=== PATIENT | female | born 1965 | race Caucasian/White ===

== ENCOUNTER 2017-07-28 18:56 | Emergency (ER) | payer OTHER ==
[2017-07-28 19:31] VITALS: TEMP 98; BMI 31.4
[2017-07-28] MEDS ORDERED: RANITIDINE HCL 150 MG TABLET (FP) PO ONE (19:31)
--- NOTE | 2017-07-28 19:33 | PDOC ---
Rapid Medical Evaluation Chief Complaint: Pain Time Seen by Provider: 07/28/17 19:26 Medical Evaluation: 07/28/17 19:27 The patient presents with a chief complaint of: Abdominal pain. Epigastric pain which she rates a 7/10. Took Zantac with some relief. I have performed a brief in-person evaluation of this patient; Pertinent physical exam findings: ambulatory, in no respiratory distress. Soft non-tender abdomen. CTAB I have ordered the following: CBC, CMP, Pt/INR, Lipase, EKG, CXR, UA The patient will proceed to the ED for further evaluation.
[2017-07-28 20:00] LABS: BASO % 0.4 % (0-2.0); EOS % 1.8 % (0-4.5); HEMATOCRIT 40.8 % (32.4-45.2); HEMOGLOBIN 13.4 GM/dL (10.7-15.3); LYMPH % 23.4 % (8-40); MCH 28.8 pg (25.7-33.7); MCHC 32.9 g/dl (32.0-36.0); MEAN CELL VOLUME 87.3 fl (80-96); MEAN PLT VOLUME 8.8 fl (7.5-11.1); MONO % 7.5 % (3.8-10.2); NEUT % 66.9 % (42.8-82.8); PLATELET COUNT 227 K/MM3 (134-434); RBC 4.67 M/mm3 (3.60-5.2); RDW 14.2 % (11.6-15.6); WHITE BLOOD COUNT 9.3 K/mm3 (4.0-10.0)
[2017-07-28 20:02] LABS: URINE APPEARANCE CLEAR; URINE BILIRUBIN NEGATIVE (NEGATIVE); URINE BLOOD 2+ (NEGATIVE); URINE COLOR LTYELLOW; URINE GLUCOSE (UA) NEGATIVE (NEGATIVE); URINE KETONE NEGATIVE (NEGATIVE); URINE LEUK ESTERASE NEGATIVE (NEGATIVE); URINE NITRITE NEGATIVE (NEGATIVE); URINE PROTEIN NEGATIVE (NEGATIVE); URINE UROBILINOGEN NEGATIVE mg/dL (0.2-1.0)
[2017-07-28 20:10] LABS: EPI CELLS RARE /HPF (FEW); URINE MUCUS RARE
[2017-07-28 20:25] LABS: INR 0.94 (0.82-1.09); PROTHROMBIN TIME (PATIENT) 10.6 SEC (9.98-11.88)
[2017-07-28 20:43] LABS: ALBUMIN 3.8 g/dl (3.4-5.0); ANION GAP 9 (8-16); BLOOD UREA NITROGEN 15 mg/dL (7-18); CALCIUM 8.6 mg/dL (8.5-10.1); CHLORIDE 103 mmol/L (98-107); CO2 27 mmol/L (21-32); CREATININE 0.6 mg/dL (0.55-1.02); GLUCOSE,RANDOM 120 mg/dL (74-106); POTASSIUM 3.7 mmol/L (3.5-5.1); SGOT/AST 16 U/L (15-37); SGPT/ALT 31 U/L (12-78); SODIUM 139 mmol/L (136-145)
[2017-07-28 20:44] LABS: ALK PHOS 81 U/L (45-117); BILIRUBIN,TOTAL 0.4 mg/dL (0.2-1.0)
--- NOTE | 2017-07-28 20:48 | PDOC ---
History of Present Illness - General Chief Complaint: Pain Stated Complaint: STOMACH PAIN Time Seen by Provider: 07/28/17 19:26 - History of Present Illness Initial Comments: 07/28/17 20:47 52 y.o. female with no PMH presents to the ED c/o 4 day h/o chest pain that starts at her subxiphoid area and radiates around to her back B/L. Patient states the pain is exacerbated by movement of her arms and she denies any associated dyspnea, palpitations, lightheadedness. Patient notes the pain came on suddenly and she cannot recall exactly what she was doing at the time it started. Of note patient also had an isolated episode of substernal chest pain 4 days previous which was relieved by ASA. Patient denies any recent trauma or over-exertion and notes she has never had a cardiac work-up. Family history is negative for any heart disease. Patient was Influenza positive in May 2017. Past History - Past Medical History Allergies/Adverse Reactions: Allergies Allergy/AdvReac Type Severity Reaction Status Date / Time No Known Allergies Allergy Verified 07/28/17 19:31 - Suicide/Smoking/Psychosocial Hx Smoking History: Current every day smoker Number of Cigarettes Smoked Daily: 10 Information on smoking cessation initiated: No Review of Systems - Review of Systems Constitutional: No: Chills, Fever Respiratory: No: Shortness of Breath Cardiac (ROS): Yes: Chest Tightness. No: Lightheadedness, Palpitations, Syncope ABD/GI: No: Constipated, Diarrhea, Nausea, Vomiting : No: Burning, Dysuria *Physical Exam - Vital Signs Last Vital Signs Temp Pulse Resp BP Pulse Ox 98 F 73 16 100/60 99 07/28/17 19:26 07/28/17 19:26 07/28/17 19:26 07/28/17 19:26 07/28/17 19:26 - Physical Exam Comments: 07/28/17 22:36 GENERAL: Awake, alert, and fully oriented, in no acute distress HEAD: No signs of trauma EYES: PERRLA, EOMI, sclera anicteric, conjunctiva clear ENT: Auricles normal inspection, hearing grossly normal, nares patent, oropharynx clear without exudates. Moist mucosa NECK: Normal ROM, supple, no lymphadenopathy, JVD, or masses LUNGS: Breath sounds equal, clear to auscultation bilaterally. No wheezes, and no crackles HEART: Regular rate and rhythm, normal S1 and S2, no murmurs, rubs or gallops, ( +) reproducible chest pain ABDOMEN: Soft, nontender, normoactive bowel sounds. No guarding, no rebound. No masses EXTREMITIES: Normal range of motion, no edema. No clubbing or cyanosis. No cords , erythema, or tenderness BACK: No midline spinal tenderness in cervical/thoracic/lumbar region NEUROLOGICAL: Normal speech, cranial nerves intact, A&O x3 SKIN: Warm, Dry, normal turgor, no rashes or lesions noted. ED Treatment Course - LABORATORY CBC & Chemistry Diagram: 07/28/17 19:43 07/28/17 19:43 - ADDITIONAL ORDERS Additional order review: Laboratory Results 07/28/17 07/28/17 07/28/17 19:43 19:43 19:43 PT with INR INR Sodium 139 Potassium 3.7 Chloride 103 Carbon Dioxide 27 Anion Gap 9 BUN 15 Creatinine 0.6 Creat Clearance w eGFR > 60 Random Glucose 120 H Calcium 8.6 Total Bilirubin 0.4 AST 16 ALT 31 Alkaline Phosphatase 81 Total Protein 7.0 Albumin 3.8 Lipase 251 Urine Color Ltyellow Urine Appearance Clear Urine pH 5.0 Ur Specific [place] 1.018 Urine Protein Negative Urine Glucose (UA) Negative Urine Ketones Negative Urine Blood 2+ H Urine Nitrite Negative Urine Bilirubin Negative Urine Urobilinogen Negative Ur Leukocyte Esterase Negative Urine WBC (Auto) <1 Urine RBC (Auto) 3 Ur Epithelial Cells Rare Urine Mucus Rare 07/28/17 19:43 PT with INR 10.60 INR 0.94 Sodium Potassium Chloride Carbon Dioxide Anion Gap BUN Creatinine Creat Clearance w eGFR Random Glucose Calcium Total Bilirubin AST ALT Alkaline Phosphatase Total Protein Albumin Lipase Urine Color Urine Appearance Urine pH Ur Specific [place] Urine Protein Urine Glucose (UA) Urine Ketones Urine Blood Urine Nitrite Urine Bilirubin Urine Urobilinogen Ur Leukocyte Esterase Urine WBC (Auto) Urine RBC (Auto) Ur Epithelial Cells Urine Mucus 07/28/17 19:43 RBC 4.67 MCV 87.3 MCHC 32.9 RDW 14.2 MPV 8.8 Neutrophils % 66.9 Lymphocytes % 23.4 Monocytes % 7.5 Eosinophils % 1.8 Basophils % 0.4 - Medications Given in the ED: ED Medications Discontinued Medications Generic Name Dose Route Start Last Admin Trade Name Freq PRN Reason Stop Dose Admin Ranitidine HCl 300 mg 02/05/18 19:31 07/28/17 19:38 Zantac - PO 07/28/17 19:32 300 mg ONCE ONE Administration Medical Decision Making - Medical Decision Making 07/28/17 20:59 52 y.o female with chest. Initial clinical suspicion for muskoskeletal chest pain as pain is reproducible on PE. Other DDx includes ACS vs. pericarditis (h/ o of recent viral illness). EKG pending. Motrin for pain relief. Reassess. 07/28/17 22:28 EKG shows NSR, normal axis, normal intervals, no concerning ST elevations/ depressions, good R wave progression V1-V6- overall non-ischemic EKG. CXR shows no infiltrate/consolidation or cardiomegaly. Patient symptomatically improved with NSAIDs suggesting muskoskeletal chest pain. Will discharge home with return precautions and instruction to f/u with PCP for further evaluation. *DC/Admit/Observation/Transfer Diagnosis at time of Disposition: Chest pain - Discharge Dispostion Disposition: HOME Condition at time of disposition: Good Admit: No - Referrals - Patient Instructions Printed Discharge Instructions: DI for Atypical Chest Pain Additional Instructions: You were evaluated today for chest pain. Your labs, chest x-ray and electrocardiogram showed no concerning findings. You can take over the counter Motrin or Ibuprofen for your pain. Make an appointment with your primary care doctor for further evaluation including any necessary cardiac evaluation. Please return to the Emergency Department for any new/worsening/concerning symptoms. - Post Discharge Activity
[2017-07-28] MEDS ORDERED: IBUPROFEN 400 MG TABLET (FP) PO ONE (20:56)
[2017-07-28 22:13] VITALS: BP 126/86; PULSE 96
--- NOTE | 2017-07-30 10:57 | EKG ---
Test Reason : Blood Pressure : / mmHG Vent. Rate : 073 BPM Atrial Rate : 073 BPM P-R Int : 158 ms QRS Dur : 072 ms QT Int : 410 ms P-R-T Axes : 054 -08 029 degrees QTc Int : 451 ms POOR DATA QUALITY, INTERPRETATION MAY BE ADVERSELY AFFECTED NORMAL SINUS RHYTHM SEPTAL INFARCT , AGE UNDETERMINED ABNORMAL ECG NO PREVIOUS ECGS AVAILABLE Confirmed by EILEEN GARCIA, AXEL ([id number]) on 07/30/2017 10:57:16 AM Referred By: Confirmed By:AXEL ARELLANO MD
== END 2017-07-28 22:30 | disposition home or self-care (01) ==
LOC: JER 18:56
DX: R07.89 Other chest pain (principal)
CPT/HCPCS: 36415; 71046-TC-FY; 80053; 81003; 81015; 83690; 85025; 85610; 93005; 93010; 99283-25

== ENCOUNTER 2022-06-27 18:41 | Emergency (ER) | payer SELFPAY ==
[2022-06-27 19:13] VITALS: BP 156/81; PULSE 82; RESP 17; TEMP 99.4; BMI 31.1
[2022-06-27] MEDS ORDERED: IBUPROFEN 600 MG TABLET (FP) PO ONE ×2 (20:14→20:38)
== END 2022-06-27 20:43 | disposition home or self-care (01) ==
LOC: JER 18:41
DX: U07.1 COVID-19 (principal)
CPT/HCPCS: 99283-25